=== PATIENT | male | born 1990 | race Caucasian/White ===

== ENCOUNTER 2021-02-01 17:15 | Emergency (ER) | payer SELFPAY ==
[2021-02-01 17:25] VITALS: BP 147/85; PULSE 102; RESP 17; TEMP 36.8; O2SAT 99; BMI 28.5
--- NOTE | 2021-02-01 17:31 | ED_ITS ---
HPI - General Adult General Chief complaint: Extremity Injury, Upper Stated complaint: rt hand and bilateral shoulder pain Time Seen by Provider: 02/01/21 17:26 Source: patient Mode of arrival: Ambulatory Limitations: no limitations History of Present Illness HPI narrative: Patient is a 30-year-old male. He is here for 2 separate issues. He states that he has bilateral shoulder pain with left being greater than right. This has been worsening over the past several years. 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 Has not been evaluated for these in the past. Has not tried anything for symptoms. He is also here for right hand pain. He states that last evening he was walking his dog and the leash got wrapped around his left hand in it was pulled. He has had pain and swelling in his hand since then. Review of Systems Constitutional Constitutional: Denies fever(s) and Denies headache(s) ENT Ears, Nose, Mouth, and Throat: Denies headache(s) Cardiovascular Cardiovascular: Denies chest pain and Denies dyspnea Respiratory Respiratory: Denies dyspnea Gastrointestinal Gastrointestinal: Denies abdominal pain, Denies nausea and Denies vomiting Musculoskeletal Musculoskeletal: Denies tingling Comments: Right hand pain, bilateral shoulder pain Integumentary/Breasts Comments: Abrasion to the back of the right hand Neurologic Neurologic: Denies headache(s) and Denies tingling Hematologic/Lymphatic Hematologic/Lymphatic: Denies easy bleeding and Denies easy bruising Allergic/Immunologic Allergic/Immunologic: Denies urticaria Patient History Medical History Patient denies medical problems Social History Smoking Status: Current every day smoker Smoking Status: Current every day smoker alcohol intake frequency: 0-2 drinks per day Substance Use Type: does not use Exam Initial Vital Signs Initial Vital Signs: Vital Signs Temperature 98.2 F 02/01/21 17:25 Pulse Rate 102 H 02/01/21 17:25 Respiratory Rate 17 02/01/21 17:25 Blood Pressure 147/85 H 02/01/21 17:25 Pulse Oximetry 99 02/01/21 17:25 Const General: cooperative and comfortable Limitations: mental status not altered HENDC Head: normal to inspection and normocephalic Resp Effort & Inspection: normal respiratory effort Cardio Rate: regular rate Skin Other: Superficial abrasion on the dorsum of the right hand just distal to the little finger MCP joint. Neuro General: patient alert and patient awake Extrem Other: Patient's bilateral shoulders are unremarkable except for a positive Neer test and tenderness to palpation over the biceps tendon. He also has pain and swelling tall for the MCP joints to his right hand. Psych Appearance: grossly normal and well kempt Course Orders Ordered: ED Orders 02/01/21 17:32 XR hand RT min 3V Stat Vital Signs Vital signs: Vital Signs - 8 hr 02/01/21 17:25 Temperature 98.2 F Pulse Rate 102 H Respiratory Rate 17 Blood Pressure 147/85 H Pulse Oximetry 99 Medical Decision Making Imaging Data Extremity x-ray #1: Radiologist's Impression: [address] [id number] ReportSigned Patient: Zuri Higginbotham AMR#: [id number]: 1990Acct:[id number]/Sex: 30 / MDate of Service: 02/01/21Loc: EDAccession Number: [id number] Procedure: XR hand RT min 3V Ordering Provider: Case Cam D.O. PROCEDURE: XR HAND RT MIN 3V INDICATIONS: Pain at all for MCP joints after injury TECHNIQUE: 3 views of the hand(s) acquired. COMPARISON: [facility], , XR HAND 3VW RT, 09/14/2015, 10:13. FINDINGS: Bones: No acute fractures or dislocations. Chronic 5th metacarpal fracture which is healed and slight deformity. Carpal bones are normally aligned. No suspicious bony lesions. Soft tissues: No suspicious soft tissue calcifications. IMPRESSION: No acute fracture. No acute osseous lesion. If symptoms and/or clinical suspicion for pathology persists, further assessment with repeat radiographs (7- 10 days) or advanced imaging (e.g. CT, MRI or bone scan) should be considered. Dictated by: Aida Sherman MD, PhD on 02/01/2021 at 17:43 Approved by: Aida Sherman MD, PhD on 02/01/2021 at 17:45 [facility] Narrative Medical decision making narrative: No fractures noted on the x-ray. The abrasions on his hand do not appear to be infected. His physical exam of his shoulders is very consistent with biceps tendinitis. We did discuss conservative treatment to include rest and ice and anti-inflammatories. He was given return precautions and follow-up instructions. He expressed understanding and agreement. Discharge Plan Departure Patient Disposition: Home Clinical Impression: Biceps tendinitis of shoulder, Contusion of hand, right, Abrasion of hand, right Instructions: DI for Tendinitis Activity Restrictions/Additional Instructions: Recommend that you start taking anti-inflammatories such as Motrin or Naprosyn for your discomfort. Be sure to take this with some food is a can be irritating to your stomach. I recommend you contact your primary provider for follow-up. Return to the emergency department for any new or worsening symptoms Stand Alone Forms: Work Release Note
== END 2021-02-01 18:08 | disposition home or self-care (01) ==
PROVIDERS: Emergency Provider Emergency Medicine
DX: M75.21 Bicipital tendinitis, right shoulder (principal); M75.22 Bicipital tendinitis, left shoulder; S60.221A Contusion of right hand, initial encounter; W23.1XXA Caught, crushed, jammed, or pinched between stationary objects, initial encounter
CPT/HCPCS: 73130; 99281; 99283

== ENCOUNTER 2025-02-25 16:12 | Emergency (ER) | payer SELFPAY ==
[2025-02-25 16:17] VITALS: BP 136/80; PULSE 80; RESP 12; TEMP 37.3; O2SAT 98; BMI 25.7
[2025-02-25 17:09] VITALS: RESP 14
--- NOTE | 2025-02-25 17:27 | ED_ITS ---
HPI - Skin/Abscess/Foreign Bdy <Elizabeth Wetzel PA-C - Last Filed: 02/25/25 19:24> General Chief complaint: Skin/Abscess/Foreign Body Stated complaint: cyst on head and cheek Time Seen by Provider: 02/25/25 16:38 Source: patient Mode of arrival: Ambulatory Limitations: no limitations History of Present Illness HPI narrative: Mr. Higginbotham is a very pleasant 34-year-old male with no reported past medical history who presents to the emergency department for a cyst to his left cheek and his scalp. Patient reports he has had a small cyst on his scalp for multiple months and he has had a cyst on his left facial cheek for 1 month. Reports that the spot on his scalp has been the same way for many months but he does have some numbness and pain because of it. However the mass on his cheek started as a small pimple 1 month ago and has continued to grow, it has grown most rapidly in the past 2 days and is now starting to cause him pain. No fevers, chills, rashes, but he has been feeling slightly under the weather. There has been no drainage from any of these spots. He does report having a wart on the back of his scalp as well that has been frozen many times in the past. He smokes marijuana and tobacco, does not use any drugs, no history of IVDU. Related Data Previous Rx's Medication Instructions Recorded doxycycline hyclate 100 mg capsule 100 mg PO BID 7 days #14 caps 02/25/25 Allergies Allergy/AdvReac Type Severity Reaction Status Date / Time Penicillins Allergy Severe Anaphylaxis Verified 02/25/25 16:17 Review of Systems <Elizabeth Wetzel PA-C - Last Filed: 02/25/25 19:24> Review of Systems ROS Unobtainable: All systems reviewed & are unremarkable except as noted in HPI and below Patient History <Elizabeth Wetzel PA-C - Last Filed: 02/25/25 19:24> Medical History Patient denies medical problems Social History Smoking Status: Current every day smoker Smoking Status: Current every day smoker tobacco type: cigarettes alcohol intake frequency: 0-2 drinks per day Exam <Elizabeth Wetzel PA-C - Last Filed: 02/25/25 19:24> Narrative Exam Narrative: GENERAL: 34 year old patient appears stated age. Well-developed patient, in no acute distress. HEAD: Atraumatic. Normocephalic. EYES: PERRL. Extraocular motions intact. No scleral icterus. No injection or drainage. ENT: No mucous membrane lesions or oral swelling. NECK: Trachea midline. Cervical ROM intact. CARDIOVASCULAR: Regular rate RESPIRATORY: ?Nonlabored respirations. ?Speaking in clear, full sentences. NEURO: AOx3. ?Clear speech. ?Moves all 4 extremities appropriately. SKIN: On the left side of the face overlying the zygomatic arch region, there is a very well circumscribed approximately 2 cm round mass that is soft and nontender, there is no surrounding erythema, warmth, streaking, induration or fluctuance. On the top of the scalp, there is a 1 cm round extremely firm immobile palpable mass with no overlying erythema increased warmth or drainage. There is also a small wart lower on the posterior scalp. Initial Vital Signs Initial Vital Signs: Vital Signs Temperature 99.1 F 02/25/25 16:17 Pulse Rate 80 02/25/25 16:17 Respiratory Rate 12 02/25/25 16:17 Blood Pressure 136/80 02/25/25 16:17 Pulse Oximetry 98 02/25/25 16:17 Oxygen Delivery Method Room Air 02/25/25 16:17 <Scotty Stone MD - Last Filed: 03/02/25 07:32> Initial Vital Signs Initial Vital Signs: Vital Signs Temperature 99.1 F 02/25/25 16:17 Pulse Rate 80 02/25/25 16:17 Respiratory Rate 12 02/25/25 16:17 Blood Pressure 136/80 02/25/25 16:17 Pulse Oximetry 98 02/25/25 16:17 Oxygen Delivery Method Room Air 02/25/25 16:17 Procedures <Elizabeth Wetzel PA-C - Last Filed: 02/25/25 19:24> Abscess I/D I&D #1: Time of procedure: 18:20 Site: face Side (if applicable): left Local Anesthetic: lidocaine 1% and with epi Amount of anesthesia used (mL): 1 Technique: needle aspiration Amount of fluid expressed (mL): 5 Irrigation: No Packing used?: none Complications: other (none) Course <Elizabeth Wetzel PA-C - Last Filed: 02/25/25 19:24> Orders Ordered: Discontinued Medications Bacitracin (Bacitracin Oint 0.9 Gm Pckt) 1 applic TOP NOW ONE Stop: 02/25/25 18:07 Last Admin: 02/25/25 18:30 Dose: 1 applic Documented By: RB Doxycycline Hyclate (Doxycycline Hyclate 100 Mg Tablet) 100 mg PO NOW ONE Stop: 02/25/25 17:09 Last Admin: 02/25/25 17:41 Dose: 100 mg Documented By: RB Lidocaine/Epinephrine (Lidocaine 1% W/Epi 10ml) 2 ml SUBCUT NOW ONE Stop: 02/25/25 17:09 Last Admin: 02/25/25 17:40 Dose: 2 ml Documented By: RB Vital Signs Vital signs: Vital Signs - 8 hr 02/25/25 16:17 02/25/25 17:09 02/25/25 18:44 Temperature 99.1 F 98.2 F Pulse Rate 80 78 Respiratory Rate 12 14 16 Blood Pressure 136/80 128/64 Pulse Oximetry 98 99 Oxygen Delivery Method Room Air Room Air <Scotty Stone MD - Last Filed: 03/02/25 07:32> Orders Ordered: Discontinued Medications Bacitracin (Bacitracin Oint 0.9 Gm Pckt) 1 applic TOP NOW ONE Stop: 02/25/25 18:07 Last Admin: 02/25/25 18:30 Dose: 1 applic Documented By: RB Doxycycline Hyclate (Doxycycline Hyclate 100 Mg Tablet) 100 mg PO NOW ONE Stop: 02/25/25 17:09 Last Admin: 02/25/25 17:41 Dose: 100 mg Documented By: RB Lidocaine/Epinephrine (Lidocaine 1% W/Epi 10ml) 2 ml SUBCUT NOW ONE Stop: 02/25/25 17:09 Last Admin: 02/25/25 17:40 Dose: 2 ml Documented By: RB Vital Signs Vital signs: Vital Signs - 8 hr 02/25/25 16:17 02/25/25 17:09 02/25/25 18:44 Temperature 99.1 F 98.2 F Pulse Rate 80 78 Respiratory Rate 12 14 16 Blood Pressure 136/80 128/64 Pulse Oximetry 98 99 Oxygen Delivery Method Room Air Room Air MDM - Skin/Abscess/Foreign Bdy <Elizabeth Wetzel PA-C - Last Filed: 02/25/25 19:24> Medical Records Attestation: I reviewed the patient's medical records. Medical records narrative: Reviewed ED visit from 02/01/2021 [facility] Narrative Medical decision making narrative: 34-year-old male with no reported past medical history who presents to the emergency department for a cyst to his left cheek and his scalp. Patient reports he has had a small cyst on his scalp for multiple months and he has had a cyst on his left facial cheek for 1 month. Differential diagnosis includes but is not limited to lipoma, cyst, infected cyst, abscess, skin cancer, mass, etc. On exam patient is in no acute distress, nontoxic appearing, afebrile. He has a well-circumscribed soft nontender mass on his left facial cheek and a small firm mass on the top of the scalp. Small mass on his scalp has been there for a very long time, whereas the 1 on his cheek has been growing over the last month. Concerned that these may be cysts vs lipomas however after shared decision- making with the patient, he would like me to proceed with the needle aspiration of the soft mass on his face as it has been fast growing and there is concern for possible cyst or abscess. We will treat with doxycycline in the event that this is infectious in nature but discussed the importance of prompt follow up with Dermatology for management. Fluid was able to be easily aspirated from the facial growth, consistent with infected cyst. Wound culture sent. Discussed proper wound care with the patient, signs and symptoms to return to the ED for, and the importance of following up with PCP/dermatology for further management. Patient verbalized understanding of all information is agreeable with the plan, antibiotics sent to pharmacy of choice, he is stable for discharge home. Discharge Plan Departure Patient Disposition: Home Clinical Impression: Infected cyst of skin Instructions: DI for Epidermal Cyst Activity Restrictions/Additional Instructions: Dear Mr. Pedroens, Thank you for coming to the emergency department. Today you were evaluated for a cyst on your scalp and cheek. The assistant production manager your cheek was aspirated using a needle, and the contents were sent to the lab for wound culture. I prescribed you an antibiotic to take for the next week to treat the development of likely cyst infection. However you will need to follow up with a state tested nursing assistant to have surgical removal of the cyst sac to prevent recurrence. Please keep the area in your face clean, dry, covered with antibiotic ointment or Vaseline and a Band-Aid. Every day you should wash this area gently with soap and water, and you can use warm compresses to help with drainage. Please complete the full course of antibiotics and follow up with the primary care doctor. Please return to the emergency department if you develop any new or worsening symptoms, redness or streaking redness of the face, fevers or any concerns. Please follow up with your primary care doctor within the next 2-3 days for ER follow-up. (If you do not have a PCP you can call [phone]. ?to schedule an appointment with an [facility] Primary Care Provider) IF YOU DEVELOP ANY NEW OR WORSENING SYMPTOMS, RETURN TO THE ER! Please read the attached instructions, they highlight more specific treatments and interventions for you at home. Thank you for letting me participate in your care, Elizabeth Wetzel PA-C Prescriptions: New doxycycline hyclate 100 mg capsule 100 mg PO BID 7 Days Qty: 14 0RF Referrals: Miscellaneous,DoctorMD [Primary Care Provider] - Stand Alone Forms: Patient Portal/API/Survey ED Sign-out <Scotty Stone MD - Last Filed: 03/02/25 07:32> Cosign ED Attending Cosignature Attestation: I was immediately available in the department for consultation. ?This documentation has been reviewed and I agree with assessment and plan. Supervised by Scotty Stone MD
[2025-02-25] MEDS: LIDOCAINE 1% W/EPI 10ML 2 ML SUBCUT (17:40)
[2025-02-25] MEDS: DOXYCYCLINE HYCLATE 100 MG TABLET PO (17:41)
--- NOTE | 2025-02-25 17:53 | CM.SWNOTE ---
ED ACQUISITIONS ANALYST Note Patient is 34 y/o male who presents to the ED due to concern for cyst on face that has increased in size in recent days. Patient was encouraged by his boss to come to ED for evaluation. Patient does not have PCP and patient does not have insurance at this time. ACQUISITIONS ANALYST enters room to meet with patient, patient is pleasant and A/Ox4, patient endorses he is either working or spending time with his kids. Patient states that he does not have insurance through his employer but he states that his employer may help him out with this. Patient states that about half of his wages go towards child support to his oldest son. ACQUISITIONS ANALYST encourages patient to call [place] [employer] to apply for state insurance and describe his circumstances to see if he qualifies. Patient was provided rosalinda care packet by registration as well. ACQUISITIONS ANALYST endorses that an ED ACQUISITIONS ANALYST can call patient on Friday to follow up if he has been able to apply for state insurance, assist with establishing PCP as patient will likely need dermatology referral. Plan: patient to d/c upon medical clearance with antibiotics, ED ACQUISITIONS ANALYST to follow up with patient on Friday regarding insurance status and to assist with establish with new PCP for further outpatient care and follow up. RITA García
[2025-02-25] MEDS: BACITRACIN OINT 0.9 GM PCKT 1 APPLIC TOP (18:30)
[2025-02-25 18:44] VITALS: BP 128/64; PULSE 78; RESP 16; TEMP 36.8; O2SAT 99
--- NOTE | 2025-03-03 18:55 | CM.SWNOTE ---
ED MARKETING PRODUCTION SPECIALIST Follow up Note [facility] MARKETING PRODUCTION SPECIALIST calls patient on 02/28/25 and reports that he is still working with his employer regarding his insurance and requests follow up call on Friday. This MARKETING PRODUCTION SPECIALIST calls patient on Friday03/02/25 and leaves requesting return call. MARKETING PRODUCTION SPECIALIST encourages patient to call PCP office as well if he has established insurance coverage. PUJA GarcíaSW
== END 2025-02-25 18:42 | disposition home or self-care (01) ==
PROVIDERS: Emergency Provider Physician Assistant
DX: L72.8 Other follicular cysts of the skin and subcutaneous tissue (principal); F17.210 Nicotine dependence, cigarettes, uncomplicated; F12.90 Cannabis use, unspecified, uncomplicated
CPT/HCPCS: 10060; 87070; 87075; 87077; 87205; 99283